=== PATIENT | female | born 1990 | race Caucasian/White ===

== ENCOUNTER → 2020-05-31 | Outpatient (CLI) | payer OTHER ==
--- NOTE | 2020-05-31 16:27 | XR ---
Left foot HISTORY: Pain, trauma 3 views the left foot There is an overlying dressing obscuring detail. Distal third and fourth metatarsals show fractures w ith callus formation suspected. No dislocation. impression: Healing third and fourth metatarsal fractures distally
== END | disposition home or self-care (01) ==
LOC: RADXRMAIN 15:43
PROVIDERS: ATTEND Podiatrist
DX: S92.332A Displaced fracture of third metatarsal bone, left foot, initial encounter for closed fracture (principal); S92.342A Displaced fracture of fourth metatarsal bone, left foot, initial encounter for closed fracture